=== PATIENT | male | born 1995 | race Caucasian/White ===

== ENCOUNTER 2017-04-24 23:41 | Emergency (ER) | payer OTHER ==
[~2017-04-24] VITALS: Ht 180.3 cm; Wt 76.3 kg
[2017-04-24 23:46] VITALS: TEMP 36.7; Ht 180.3 cm; Wt 76.3 kg
[2017-04-25] MEDS ORDERED: ALUMINUM/MAGNESIUM SUSP 30 ML UDC PO STA (00:36)
[2017-04-25] MEDS ORDERED: IBUPROFEN 800 MG TAB PO STA (00:36)
--- NOTE | 2017-04-25 00:45 | EMERGENCY ROOM VISIT NOTE ---
History Report prepared by Rebeca: Prosper Sweeney Under the Supervision of: Dr. Andreea Bowden D.O. First contact with patient: 23:58 Chief Complaint: SORETHROAT Stated Complaint: SORE THROAT History of Present Illness The patient is a 21 year old male who presents to the Emergency Room with complaints of a persistent sore throat beginning two days ago. He has a history of strep throat, and states that his current symptoms feel like strep throat. He also complains of vomiting and ear pressure. Patient states he induced vomiting himself. The patient notes that he works at [employer] and has been around a lot of children recently. He denies any coughing, rash or known fevers. Source of History: patient Onset: Two days ago Position: throat Quality: other (sore) Timing: other (persistent) Associated Symptoms: + vomiting, No fevers, No cough, No rash Note: Additional symptoms: ear pain. Review of Systems See HPI for pertinent positives & negatives. A total of 10 systems reviewed and were otherwise negative. Past Medical & Surgical Medical Problems: (1) No Known Active Medical Problems Family History No pertinent family history stated. Social History Smoking Status: Never Smoker Housing Status: lives with roommate Current/Historical Medications Scheduled Penicillin V Potassium (Veetids), 500 MG PO BID Scheduled PRN Dextromethorphan-Phenylephrine (Day-Time Cold/Flu Relief), 1 DOSE PO TID PRN for COLD SX Allergies Coded Allergies: No Known Allergies (Unverified , 04/24/17) Physical Exam Vital Signs Date Time Temp Pulse Resp B/P (MAP) Pulse Ox O2 Delivery O2 Flow Rate FiO2 04/25/17 01:24 69 18 146/98 100 04/24/17 23:46 97 Room Air 04/24/17 23:46 36.7 63 20 151/96 100 Room Air Physical Exam GENERAL: alert, well appearing, well nourished, no distress, non-toxic EYE EXAM: normal conjunctiva, PERRL and EOM's grossly intact OROPHARYNX: lips, buccal mucosa, and tongue normal and mucous membranes are moist. Bilateral tonsillar hypertrophy with erythema and bilateral tonsillar exudates. Uvula is midline. Mild submandibular lymphadenopathy bilaterally. TMs clear bilaterally. NECK: supple, no nuchal rigidity, no adenopathy, non-tender LUNGS: Clear to auscultation. Normal chest wall mechanics HEART: no murmurs, S1 normal and S2 normal ABDOMEN: abdomen soft, non-tender, normo-active bowel sounds, no masses, no rebound or guarding. BACK: Back is symmetrical on inspection and there is no deformity, no midline tenderness, no CVA tenderness. SKIN: no rashes and no bruising UPPER EXTREMITIES: upper extremities are grossly normal. LOWER EXTREMITIES: No pitting edema. NEURO EXAM: Normal sensorium, cranial nerves II-XII grossly intact, normal speech, no gross weakness of arms, no gross weakness of legs. Medical Decision & Procedures Medications Administered Medications (Trade) Dose Ordered Sig/Gurpreet Route Start Time Stop Time Status Last Admin Dose Admin Ibuprofen (Motrin Tab) 800 mg NOW STAT PO 04/25/17 00:36 04/25/17 00:38 DC 04/25/17 01:15 800 MG Al Hydroxide/Mg Hydroxide (Maalox Susp) 30 ml NOW STAT PO 04/25/17 00:36 04/25/17 00:38 DC 04/25/17 01:15 30 ML ED Course 0000: The patient was evaluated in room C3. A complete history and physical exam was performed. 0036: Ordered Maalox Susp 30 mL PO, Motrin Tab 800 mg PO. 0045: Upon reevaluation, the patient is feeling better. I discussed the findings and the treatment plan with the patient. He verbalizes agreement and understanding. The patient was discharged home. Medical Decision Differential diagnosis: Etiologies such as viral syndrome, tonsillitis, streptococcal pharyngitis, mononucleosis, peritonsillar abscess, retropharyngeal abscess, otitis, pneumonia , influenza, as well as others were entertained. Physical exam patient's oropharynx is consistent with strep Pharyngitis, rapid strep negative. Patient aware that this will be sent for additional culture. Patient otherwise not immunocompromised, doubt diphtheria, physical exam not consistent with peritonsillar abscess, doubt deep space infection, no evidence for acute otitis media, symptoms not consistent with meningitis/encephalitis/ mastoiditis. Doubt ludwigs angina, lemierre's syndrome. Doubt lymphangitis or abscess. Discussed with patient monitoring of symptoms, hydration, Tylenol and ibuprofen. Patient given prescription for antibiotics and instructed that if his symptoms do not slowly start to improve over the next 2-3 days, he should going get the prescription filled. Patient from out of the area and residing at [place] currently, no local family doctor. Medication Reconcilliation Current Medication List: was personally reviewed by me Blood Pressure Screening Patient's blood pressure: Elevated blood pressure Blood pressure disposition: Elevated BP felt to be situational Impression Primary Impression: Pharyngitis Scribe Attestation The scribe's documentation has been prepared under my direction and personally reviewed by me in its entirety. I confirm that the note above accurately reflects all work, treatment, procedures, and medical decision making performed by me. Departure Information Dispostion Home / Self-Care Prescriptions Penicillin V Potassium (Veetids) 500 Mg Tab 500 MG PO BID for 10 Days, #20 TAB Prov: Andreea Bowden, 04/25/17 Referrals No Doctor, Assigned (PCP) Patient Instructions My [facility] Additional Instructions Your strep swab tonight was negative, however it will be sent for additional culture. If the culture is positive you will receive a phone call. Please use Tylenol and ibuprofen as needed for pain. Please continue to drink plenty of fluids. Please do not take ibuprofen/Motrin/Advil/Aleve on an empty stomach. If you develop any worsening pain, difficulty swallowing, fevers, recurrent vomiting, noticed a rash or sore, or you have any other new concerns, please return the emergency room. If your symptoms persist over the next 48 hours, you may start the antibiotic as prescribed. Problem Qualifiers Primary Impression: Pharyngitis Pharyngitis/tonsillitis etiology: unspecified etiology Qualified Codes: J02.9 - Acute pharyngitis, unspecified
[2017-04-25] MEDS ORDERED: PENI-82 PO (00:46)
[2017-04-25 01:24] VITALS: BP 146/98; PULSE 69; O2SAT 100
[2017-04-25] MEDS ORDERED: PRED20TA2 PO (23:19)
[2017-04-27] MEDS ORDERED: DEXTLIQ81 PO (00:15)
== END 2017-04-25 01:24 | disposition home or self-care (01) ==
LOC: C.EDB 23:43 → C.EDC 04-25 01:24
DX: J02.9 Acute pharyngitis, unspecified (principal); R11.10 Vomiting, unspecified

== ENCOUNTER 2017-04-25 21:28 | Emergency (ER) | payer OTHER ==
[~2017-04-25] VITALS: Ht 180.3 cm; Wt 76.4 kg
[~2017-04-25 21:28] MED LIST: PENI-82 PO
[2017-04-25 21:32] VITALS: TEMP 37; Ht 180.3 cm; Wt 76.4 kg
[2017-04-25] MEDS ORDERED: KETOROLAC TROMETHAMINE 30 MG/ML VIAL IV STA (21:52)
[2017-04-25] MEDS ORDERED: SODIUM CHLORIDE 0.9% 1000ML 1,000 ML, SODIUM CHLORIDE 0.9% 1000ML 1,000 ML IV ONE (22:00)
[2017-04-25] MEDS ORDERED: DEXAMETHASONE SOD INJ 10 MG/ML VIAL IV ONE (22:00)
[2017-04-25] MEDS ORDERED: ACETAMINOPHEN IV 100 ML IV ONE (22:00)
[2017-04-25 22:25] LABS: HEMATOCRIT 42.1 % (42-52); MEAN CELL VOLUME 86.4 fL (80-100); MEAN CORPUSCULAR HGB CONC 34.7 g/dl (32-36); MEAN PLATELET VOLUME 9.3 fL (7.4-10.4); PLATELET COUNT 218 K/uL (130-400); RED BLOOD COUNT 4.87 M/uL (4.7-6.1)
[2017-04-25 22:52] LABS: BUN/CREATININE RATIO 8.8 (10-20); CALCIUM 8.9 mg/dl (8.5-10.1); CREATININE 1.2 mg/dl (0.60-1.40); POTASSIUM 3.6 mmol/L (3.5-5.1)
[2017-04-25 22:55] LABS: ALB/GLOB RATIO 0.9 (0.9-2)
[2017-04-25 22:59] LABS: COMPLETE YES; LYMPH ABS # 2.26 K/uL (1.2-3.4); LYMPHOCYTE % 17.4 %; NEUTROPHILS % 48.7 %; VARIANT LYM ABS # 3.95 K/uL; VARIANT LYMPHOCYTE % 30.4 %
[2017-04-25 23:08] VITALS: BP 137/66; PULSE 70; O2SAT 98
[2017-04-25] MEDS ORDERED: PRED20TA2 PO (23:19)
[2017-04-25] MEDS ORDERED: NORCO 5/325MG HOME PACK PO ONE (23:30)
--- NOTE | 2017-04-26 02:42 | EMERGENCY ROOM VISIT NOTE ---
History First contact with patient: 21:42 Chief Complaint: ILLNESS Stated Complaint: DIFFICULTY BREATHING History of Present Illness The patient is a 21 year old male who presents to the Emergency Room with complaints of sore throat symptoms for the past 3 days. The patient was seen and evaluated in the department yesterday with this complaint where a rapid strep was negative. The patient has a history of strep pharyngitis and his throat culture is pending. He was started on Pen-Vee K, and since that he has taken 2 doses of this medication. The patient states that his pain continues to be severe and is having difficulty eating because of his symptoms. He is able to handle his own secretions and swallow. He has had intermittent fever with only minimal improvement of symptoms with ibuprofen and Tylenol. The patient rates his discomfort a 7/10. 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 Review of Systems More than 10 systems were reviewed and otherwise negative with the exception of history of present illness. Past Medical/Surgical History Medical Problems: (1) No Known Active Medical Problems Family History No pertinent family history Social History Smoking Status: Never Smoker Housing Status: lives with roommate Current/Historical Medications Scheduled Penicillin V Potassium (Veetids), 500 MG PO BID Prednisone (Prednisone Tab), 2 TAB PO DAILY Scheduled PRN Dextromethorphan-Phenylephrine (Day-Time Cold/Flu Relief), 1 DOSE PO TID PRN for COLD SX Physical Exam Vital Signs Date Time Temp Pulse Resp B/P (MAP) Pulse Ox O2 Delivery O2 Flow Rate FiO2 04/25/17 23:08 70 20 137/66 98 Room Air 04/25/17 21:32 37.0 76 20 157/98 99 Room Air Physical Exam VITALS: Vitals are noted on the nurse's note and reviewed by myself. Vital signs stable. GENERAL: Well-developed, well-nourished, white male, who appears ill but nontoxic. He is handling his own secretions and speaking in a normal voice. HEAD: Normocephalic atraumatic. EARS: External ear normal. External auditory canals clear, tympanic membranes pearly sampson without erythema or effusion bilaterally. EYES: Pupils equal round and reactive to light and accommodation. Conjunctivae without injection, sclerae without icterus. Extraocular movements intact. NOSE: Patent, turbinates without inflammation or discharge. MOUTH: Mucous membranes moist. Tonsils are 2+ enlarged, erythematous, and with exudate. There is no peritonsillar abscess appreciated. No uvular displacement. Airway is patent. No evidence of Bran's. NECK: Supple without nuchal rigidity. Shotty anterior lymphadenopathy. No thyromegaly. Cervical spine is nontender. HEART: Regular rate and rhythm without murmurs gallops or rubs. LUNGS: Clear to auscultation bilaterally without wheezes, rales or rhonchi. No retractions or accessory muscle use. ABDOMEN: Positive normal bowel sounds x 4. Soft, nontender, without masses or organomegaly. No guarding or rebound tenderness. Medical Decision & Procedures Laboratory Results 04/25/17 22:10 Red Blood Count 4.87, Mean Corpuscular Volume 86.4, Mean Corpuscular Hemoglobin 30.0, Mean Corpuscular Hemoglobin Concent 34.7, Mean Platelet Volume 9.3 04/25/17 22:10 Test 04/25/17 22:10 White Blood Count 13.00 K/uL (4.8-10.8) Red Blood Count 4.87 M/uL (4.7-6.1) Hemoglobin 14.6 g/dL (14.0-18.0) Hematocrit 42.1 % (42-52) Mean Corpuscular Volume 86.4 fL (80-100) Mean Corpuscular Hemoglobin 30.0 pg (25-34) Mean Corpuscular Hemoglobin Concent 34.7 g/dl (32-36) Platelet Count 218 K/uL (130-400) Mean Platelet Volume 9.3 fL (7.4-10.4) RDW Standard Deviation 40.5 fL (36.4-46.3) RDW Coefficient of Variation 12.7 % (11.5-14.5) Neutrophils % (Manual) 48.7 % Lymphocytes % (Manual) 17.4 % Variant Lymphocytes % (manual) 30.4 % Monocytes % (Manual) 3.5 % Neutrophils # (Manual) 6.33 K/uL (1.4-6.5) Total Absolute Neutrophils 6.33 K/uL (1.4-6.5) Lymphocytes # (Manual) 2.26 K/uL (1.2-3.4) Absolute Variant Lymphocytes 3.95 K/uL Total Absolute Lymphocytes 6.21 K/uL (1.2-3.4) Monocytes # (Manual) 0.46 K/uL (0.11-0.59) Red Blood Cell Morphology Unremarkable Anion Gap 8.0 mmol/L (3-11) Est Creatinine Clear Calc Drug Dose 104.5 ml/min Estimated GFR () 100.3 Estimated GFR (Non- 86.5 BUN/Creatinine Ratio 8.8 (10-20) Calcium Level 8.9 mg/dl (8.5-10.1) Total Bilirubin 0.9 mg/dl (0.2-1) Aspartate Amino Transf (AST/SGOT) 38 U/L (15-37) Alanine Aminotransferase (ALT/SGPT) 71 U/L (12-78) Alkaline Phosphatase 117 U/L (45-117) Total Protein 7.6 gm/dl (6.4-8.2) Albumin 3.7 gm/dl (3.4-5.0) Globulin 3.9 gm/dl (2.5-4.0) Albumin/Globulin Ratio 0.9 (0.9-2) Monoscreen NEG (NEG) Medications Administered Medications (Trade) Dose Ordered Sig/Gurpreet Route Start Time Stop Time Status Last Admin Dose Admin Sodium Chloride/ Sodium Chloride 2,000 ml @ 999 mls/hr Q2H1M ONCE IV 04/25/17 22:00 04/26/17 00:00 DC 04/25/17 22:00 999 MLS/HR Dexamethasone Sodium Phosphate (Decadron Inj) 10 mg NOW ONCE IV 04/25/17 22:00 04/25/17 22:01 DC 04/25/17 22:27 10 MG Ketorolac Tromethamine (Toradol Inj) 30 mg NOW STAT IV 04/25/17 21:52 04/25/17 21:53 DC 04/25/17 22:27 30 MG Acetaminophen 100 ml @ 400 mls/hr NOW ONCE IV 04/25/17 22:00 04/25/17 22:14 DC 04/25/17 22:26 400 MLS/HR ED Course Physical exam and history were performed. Nursing notes, EMR, and Medication List were personally reviewed. Patient appears to have sore throat symptoms for the past several days. He has taken 2 doses of Pen-Vee K and continues without significant improvement of his symptoms. On examination he appears ill but nontoxic. His rapid strep was negative from yesterday and at this time his culture swab is pending. IV access was established and labs were obtained. The patient was hydrated with 2 L normal saline. He was given 30 mg IV Toradol and 1 g IV Tylenol. He was additionally medicated with IV Decadron. The patient was reevaluated multiple times with course of his stay. He has a mildly elevated white blood cell count of 13,000. He does not have a significant anemia, bandemia, or gross electrolyte imbalance. Transaminases are nondiagnostic. Monospot is negative. On reevaluation the patient felt much better and was very comfortable. I discussed options of care with the patient, who felt comfortable with discharge home. The patient is to continue his Pen-Vee K as previously prescribed. I will give him a home pack of Vicodin as well as a short prescription for steroids. The patient is to drink plenty of fluids and remain well hydrated. We discussed concerning signs of abscess and the importance of returning if he has worsening symptoms. He was otherwise invited back to the ER with any new, worsening, or concerning symptoms. The chart was completed utilizing [employer] Voice Recognition Software. Grammatical errors, random word insertions, pronoun errors, and incomplete sentences are an occasional consequence of this system due to software limitations, ambient noise, and hardware issues. Any formal questions or concerns about the content, text, or information contained within the body of this dictation should be directly addressed to the provider for clarification. . Medical Decision Differential diagnosis: Etiologies such as viral syndrome, tonsillitis, streptococcal pharyngitis, mononucleosis, peritonsillar abscess, retropharyngeal abscess, otitis, pneumonia , influenza, as well as others were entertained. Impression Primary Impression: Acute tonsillitis Departure Information Prescriptions Prednisone (Prednisone Tab) 20 Mg Tab 2 TAB PO DAILY for 3 Days, #6 TAB Prov: Howie Lugo PA-C 04/25/17 Referrals No Doctor, Assigned (PCP) Patient Instructions My [facility]
[2017-04-27] MEDS ORDERED: DEXTLIQ81 PO (00:15)
== END 2017-04-25 23:44 | disposition home or self-care (01) ==
LOC: C.EDB 21:29 → C.EDA 23:44
DX: J03.90 Acute tonsillitis, unspecified (principal)

== ENCOUNTER 2017-04-27 15:38 | Emergency (ER) | payer OTHER ==
[~2017-04-27] VITALS: Ht 180.3 cm; Wt 63.0 kg
[~2017-04-27 15:38] MED LIST changes: +DEXTLIQ81 PO; +PRED20TA2 PO
[2017-04-27 15:44] VITALS: TEMP 36.7; Ht 180.3 cm; Wt 63.0 kg
[2017-04-27] MEDS ORDERED: CLC/300 PO (16:22)
[2017-04-27] MEDS ORDERED: HYDR-5688 PO (16:22)
--- NOTE | 2017-04-27 16:26 | EMERGENCY ROOM VISIT NOTE ---
ED Visit Note First contact with patient: 15:56 CHIEF COMPLAINT: Sore throat 6 days HISTORY OF PRESENT ILLNESS: Patient is an otherwise healthy 21-year-old white male who returns to the emergency department for his third ED visit in as many days, for evaluation of ongoing complaints of a sore throat. Patient states that he developed a sore throat about 6 days ago. He was seen here in the emergency department late on 04/24, rapid strep was performed at that time and was negative, however he was started on Pen-Vee K which he has been taking as prescribed. He returned the following day for worsening symptoms. Further workup was performed. He received IV fluids, Toradol and steroids. Laboratory testing revealed a slightly elevated white count, negative Monospot. He was discharged on prednisone which he has been taking, and was given a hydrocodone home pack. He states that he took one tablet every 4 hours, which did help him significantly with his pain, but did not have a prescription for the hydrocodone and since he has not had a pain medication, his pain has returned. He is able to swallow liquids but it is very painful. It was tolerable when he had the hydrocodone and he could actually eat solid foods when he was on the pain medication. He has been drinking today but has not had anything solid to eat. He has not had any further fevers. He states the pain in his throat is equal bilaterally. He denies any skin rashes. No abdominal pain. No posterior neck pain or stiffness. He rates his discomfort an 8/10. REVIEW OF SYSTEMS: Review of systems as per HPI. All other systems reviewed were negative. At least 6 systems reviewed. PMH: Electronic medical records are reviewed and summarized as above/below. See Problem List. 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 He does not smoke, drinks alcohol socially. PHYSICAL EXAM: Vital Signs: Reviewed Nurse's notes. Temperature 36.7C orally. MENTAL STATUS: Alert and cooperative. Nontoxic appearing. HEAD: Atraumatic, without temporal or scalp tenderness. EYES: PERRL, EOMI, no discharge or injection. EARS: Tympanic membranes intact, not inflamed, have normal contour. External canals clear. MOUTH: Mucous membranes moist, no lesions, tongue and gums appear normal. THROAT: Posterior pharynx, including the soft palate on the tonsillar pillars are erythematous, tonsils are both enlarged, and erythematous with exudate. Uvula is midline. No trismus. Airway is patent. NECK: Supple, nontender, bilateral cervical chain lymphadenopathy noted.. HEART: Regular rate and rhythm without murmurs, ectopy, gallops, or rubs. LUNGS: Clear to auscultation and breath sounds equal, no wheezes, rales, or rhonchi. ABDOMEN: Bowel sounds are present. Abdomen is soft, nontender and nondistended. No organomegaly appreciated. SKIN: Normal. NEUROLOGICAL: Sensory and motor functions grossly intact. Normal gait. ED course: The patient was seen and evaluated as above. His 2 prior ED visits were reviewed. His throat culture from 04/24 is growing Group C strep. He had a slight leukocytosis of 13,002 days ago and his Monospot was negative at that time. Treatment options were discussed with the patient. Certainly he has an impressive tonsillitis, I feel that he is appropriately covered with Pen-Vee K and the prednisone. It is certainly reasonable to continue some hydrocodone for pain management until the steroids have a chance decay can, and the antibiotics can get ahead of the infection. He does not have any physical exam findings to suspect peritonsillar or retropharyngeal abscess. I did also discuss with him the ongoing possibility of mononucleosis, given that he was tested so early in his illness at that been a false negative test. Treatment for mono is supportive nonetheless. He was given a prescription for hydrocodone , if he does not really feel like he is turning the corner in the next 2-3 days , I did given a prescription for clindamycin that he can switch to. He was advised to finish the Pen-Vee K and take the prednisone as prescribed. If his symptoms are worsening he should return to the emergency department. He expressed understanding of this and was agreeable. Patient was reviewed in the [facility] Prescription Drug Monitoring Program, and there were no red flags noted. Medication reconciliation: I attest that I have personally reviewed the patient' s current medication list. Blood pressure screening : Patient was found to have normal blood pressure on screening and does not require follow-up. Problem List Medical Problems: (1) Acute tonsillitis Status: Resolved (2) Acute tonsillitis Status: Resolved (3) Pharyngitis Status: Resolved Current/Historical Medications Scheduled Clindamycin HCl (Clindamycin HCl), 1 CAP PO TID Penicillin V Potassium (Veetids), 500 MG PO BID Prednisone (Prednisone Tab), 2 TAB PO DAILY Scheduled PRN Dextromethorphan-Phenylephrine (Day-Time Cold/Flu Relief), 1 DOSE PO TID PRN for Cold/Flu Symptoms Hydrocodone/Acetaminophen 5MG/325MG ([place] 5MG/325MG), 1-2 TABLETS PO Q4 PRN for Pain Allergies Coded Allergies: No Known Allergies (Unverified , 04/25/17) Vital Signs Date Time Temp Pulse Resp B/P (MAP) Pulse Ox O2 Delivery O2 Flow Rate FiO2 04/27/17 16:48 48 16 127/71 98 04/27/17 15:48 Room Air 04/27/17 15:44 36.7 65 16 122/72 99 Room Air Departure Information Impression Primary Impression: Exudative tonsillitis Prescriptions Clindamycin HCl (Clindamycin HCl) 300 Mg Cap 1 CAP PO TID for 10 Days, #30 CAP Prov: Malinda Steele PA 04/27/17 Hydrocodone/Acetaminophen 5MG/325MG ([place] 5MG/325MG) Tab 1-2 TABLETS PO Q4 Y for Pain, #30 TAB For Initial Treatment Prov: Malinda Steele PA 04/27/17 Referrals No Doctor, Assigned (PCP) Patient Instructions My [facility] Additional Instructions Finished Pen-Vee K as previously prescribed. Continue prednisone. Hydrocodone/Acetaminophen ([place]) 5/325 mg: Take 1-2 pills every four hours for breakthrough pain. Avoid alcohol, operating machinery or dangerous equipment, working on ladders or roofs, DRIVING, or situations where being under the influence may be dangerous. It is recommended to use an [id number] stool softener such as Colace, 100mg twice daily while taking this medication to avoid constipation. Ibuprofen(Motrin, Advil) may be used for fever or pain. Use 600mg every six hours as needed. Take with food. Avoid using more than 2400mg in a 24 hour period. Do not use 2400mg per day for more than three consecutive days without physician direction. Prolonged inappropriate use can lead to stomach upset or ulcers. (AND/OR) Acetaminophen(Tylenol) may be used for fever or pain. Use 1000mg every six hours as needed. Avoid using more than 3000mg in a 24 hour period. Soft/liquid diet, advance as tolerated. Increase clear fluid intake. Salt water gargles. Return to the ED for worsening throat pain (particularly unilateral throat pain) , fevers, vomiting, posterior neck pain or stiffness, abdominal pain (right sided), or any other concerns. If you do not feel that your symptoms are improving by Sunday 04/29, fill and take the prescription for Clindamycin.
[2017-04-27 16:48] VITALS: BP 127/71; PULSE 48; O2SAT 98
== END 2017-04-27 16:50 | disposition home or self-care (01) ==
LOC: C.EDB 15:40 → C.EDC 16:50
DX: J03.90 Acute tonsillitis, unspecified (principal)